=== PATIENT | female | born 1985 | race African-American/Black ===

== ENCOUNTER 2023-11-26 21:28 | Emergency (ER) | payer OTHER ==
[2023-11-26 21:38] VITALS: BP 150/90; PULSE 80; RESP 18; TEMP 98.6; BMI 34.6
[2023-11-26] MEDS ORDERED: FLUORESCEIN NA 1 EA STRIP ONE (22:31)
[2023-11-26] MEDS ORDERED: TETRACAINE 0.5% OPHTH SOLN 2 ML BOTTLE ONE (22:31)
[2023-11-26] MEDS: FLUORESCEIN NA 1 EA STRIP OS ONE (22:37)
[2023-11-26] MEDS: TETRACAINE 0.5% HCL 0.6ML DROPPER.BOTTLE OS ONE (22:37)
== END 2023-11-26 22:50 | disposition home or self-care (01) ==
LOC: JERFT 21:28
DX: H57.12 Ocular pain, left eye (principal); H57.89 Other specified disorders of eye and adnexa
CPT/HCPCS: 99283-25